=== PATIENT | female | born 1965 | race Caucasian/White ===

== ENCOUNTER 2016-10-11 05:35 | Day surgery (SDC) | payer OTHER ==
[2016-10-06 12:04] LABS: HEMATOCRIT 36.4 % (36.0-48.0); HEMOGLOBIN 11.8 g/dL (12.0-16.0)
[2016-10-06 12:17] LABS: BUN (BLOOD UREA NITROGEN) 16 MG/DL (6-23); CALCIUM, SERUM 8.7 MG/DL (8.5-10.4); CHLORIDE, SERUM 106 MMOL/L (96-112); CO2 (CARBON DIOXIDE) 29 MMOL/L (24-34); CREATININE 0.82 MG/DL (0.55-1.02); GFR AFRICAN AMERICAN 95 ML/MIN (>=60); GFR NON AFRICAN AMERICAN 82 ML/MIN (>=60); GLUCOSE, SERUM 74 MG/DL (60-99); POTASSIUM, SERUM 3.9 MMOL/L (3.5-5.3)
[2016-10-06 12:18] LABS: SODIUM, SERUM 143 MMOL/L (135-148)
--- NOTE | ~2016-10-11 | OP ---
Record Of Operation [facility] [address] [place]. [address] NAME: AVELINA THURSTON MOUNA : 61 STATUS : [facility]#: [id number] AGE: 51 ADM/REG DATE : 10/11/16 MR#: [id number] REPORT SERV DATE: 10/16/16 DICTATED BY: LUANA WINSTON II DATE: 10/16/16 REPORT STATUS : Draft TRANSCRIBED BY: MODL DATE: 10/16/16 DATE OF PROCEDURE: 10/11/2016 PREOPERATIVE DIAGNOSES: 1. L4-5 stenosis. 2. Very mild spondylolisthesis without instability. 3. Neurogenic claudication. POSTOPERATIVE DIAGNOSES: 1. L4-5 stenosis. 2. Very mild spondylolisthesis without instability. 3. Neurogenic claudication. PROCEDURE: 1. L4-L5 laminectomy. 2. Use of the microscope and stereotactic spinal imaging. SURGEON: Luana Winston M.D. FLUIDS: 1400 mL LR. ESTIMATED BLOOD LOSS: 15 mL. DRAINS: None. COMPLICATIONS: None. ANTIBIOTIC: Preoperatively. PREOPERATIVE HISTORY: This is a very friendly, 51-year-old female with classic neurogenic claudication. She did very well following neck surgery several years ago. We discussed the pros and cons of continuing nonoperative care versus surgery. We discussed the risks which include, but are not limited to infection, abscess, CSF leak, foot drop, nerve root injury, as well as a chance of needing a fusion down the road. DESCRIPTION OF PROCEDURE: After informed consent was obtained, the patient was brought to the operating room at her request and general anesthesia achieved. She was placed in the prone position, AND the back was prepped and draped in a sterile fashion. The stereotactic spinal pin was placed into the iliac crest. The intraoperative CT scan was completed and stereotactic guidance used throughout the case. Next, the minimally invasive incision was performed just to the left of the midline followed by placement of the minimally invasive quadrant retractor. The microscope was then brought into place followed by use of the high-speed bur to initiate the laminectomy at L4-5. The spinal laminar junction was now taken down and the central canal well identified. The laminectomy was carried out with Kerrison rongeurs and the curettes. Portions of the facet Record Of Operation [facility] [address] [place]. [address] NAME: AVELINA THURSTON : 61 STATUS : [facility] PAT#: [id number] AGE: 51 ADM/REG DATE : 10/11/16 MR#: [id number] REPORT SERV DATE: 10/16/16 DICTATED BY: LUANA WINSTON II DATE: 10/16/16 REPORT STATUS : Draft TRANSCRIBED BY: TRUPTI DATE: 10/16/16 were now removed bilaterally with the Kerrison rongeurs. The L5 nerve roots were now found to be well decompressed. The L4 nerve roots did not exhibit compression when the short ball tipped probe was utilized. Next, the area was now irrigated and hemostasis confirmed. I was pleased with the central decompression as well as the L5 nerve root decompression. Standard closure was performed, and the patient then extubated and transferred to PACU in stable condition. ESCOBAR/TRUPTI Luana Winston II, M.D. / [id number] CC: Wali Lawrence II, D.O.
[~2016-10-11 05:35] MED LIST: ACET500CAP PO; IBU800 PO; NEUR100 PO; NEUR300 PO; PRIN10 PO; ULTRAM50 PO
== END 2016-10-11 14:46 | disposition home or self-care (01) ==
LOC: SDC 05:35
PROVIDERS: Orthopaedic Surgery
PROC: 00NY0ZZ Release Lumbar Spinal Cord, Open Approach (ICD-10-PCS; principal; 2016-10-11 07:00)
DX: M48.06 Spinal stenosis, lumbar region (principal); M43.16 Spondylolisthesis, lumbar region; I73.9 Peripheral vascular disease, unspecified; I10 Essential (primary) hypertension; E66.9 Obesity, unspecified; Z79.899 Other long term (current) drug therapy; Z98.51 Tubal ligation status; Z98.890 Other specified postprocedural states
CPT/HCPCS: 80048; 85014; 85018; 88304; 88311; 93005; A9270-GY; J0690; J1170; J2250; J2405; J2710; J3010